=== PATIENT | female | born 1955 | race American Indian/Alaskan Native ===

== ENCOUNTER 2019-02-24 03:37 | Observation (INO) | payer MEDICAID, MEDICARE ==
[2019-02-24] MEDS ORDERED: ASPIRIN 325 MG TAB PO ONE (03:49)
--- NOTE | 2019-02-24 04:24 | XRay Report ---
CHEST 1 VIEW INDICATION / CLINICAL INFORMATION: Chest Pain. COMPARISON: None available. FINDINGS: SUPPORT DEVICES: None. HEART / MEDIASTINUM: No significant abnormality. LUNGS / PLEURA: No significant pulmonary or pleural abnormality. No pneumothorax. ADDITIONAL FINDINGS: No significant additional findings. IMPRESSION: 1. No acute findings. Signer Name: Herb Rios MD Signed: 02/24/2019 4:19 AM Workstation Name: [employer]
[2019-02-24 04:26] LABS: Basophils # (Auto) 0.1 K/mm3 (0.0-0.1); Eosinophils # (Auto) 0.1 K/mm3 (0.0-0.4); Hematocrit 39.9 % (30.3-42.9); Hemoglobin 13.2 gm/dl (10.1-14.3); Lymphocytes # (Auto) 1.5 K/mm3 (1.2-5.4); Lymphocytes % (Auto) 18.9 % (13.4-35.0); Mean Corpuscular HGB Conc 33 % (30-34); Mean Corpuscular Volume 85 fl (79-97); Monocytes # (Auto) 0.8 K/mm3 (0.0-0.8); Monocytes % (Auto) 10.1 % (0.0-7.3); Platelet Count 219 K/mm3 (140-440); Red Blood Count 4.71 M/mm3 (3.65-5.03); Red Cell Distribution Width 15.9 % (13.2-15.2)
[2019-02-24 04:47] LABS: BUN/Creatinine Ratio 11; Blood Urea Nitrogen 13 mg/dL (7-17); Calcium 9.9 mg/dL (8.4-10.2); Hemolysis Index 1
--- NOTE | 2019-02-24 07:52 | Emergency Department Report ---
ED Chest Pain HPI - General Chief Complaint: Chest Pain Stated Complaint: CHEST PAIN Time Seen by Provider: 02/24/19 07:40 Source: patient Mode of arrival: Ambulatory Limitations: No Limitations - History of Present Illness Initial Comments: Patient is 63 years old female with history of coronary artery disease status post 4 stents after a cardiac arrest 6 years ago, peripheral vascular disease, hypertension and diabetes. Patient also stated that she had history of rheumatic heart disease when she was young. Patient presented to the ER complaining of left sided chest pain started this morning. Patient described her pain as tightness with no radiation. Patient denied any shortness of breaths, cough, fever or chills. MD Complaint: chest pain -: This morning Onset: during rest Pain Location: left chest Pain Radiation: none Severity: moderate Severity scale (0 -10): 6 Quality: tightness Consistency: constant - Related Data Home Medications Medication Instructions Recorded Confirmed Last Taken Levothyroxine [Synthroid] 125 mcg PO DAILY 01/27/14 01/27/14 01/27/14 Pioglitazone (Nf) [Actos (Nf)] 30 mg PO DAILY 01/27/14 01/27/14 01/27/14 Simvastatin (Nf) [Zocor TAB] 40 mg PO HS 01/27/14 01/27/14 01/26/14 cloNIDine [Catapres] 0.2 mg PO BID 01/27/14 01/27/14 01/27/14 08:00 Previous Rx's Medication Instructions Recorded Last Taken Type ISOSORBIDE MONOnitrate [Imdur ER] 60 mg PO QDAY #30 tablet 01/29/14 Unknown Rx Allergies Allergy/AdvReac Type Severity Reaction Status Date / Time No Known Allergies Allergy Unverified 01/27/14 22:04 Heart Score - HEART Score History: Moderately suspicious EKG: Non-specific Age: 45-65 Risk factors: > 3 risk factors or hx of atherosclerotic disease Troponin: < normal limit HEART Score: 5 ED Review of Systems ROS: Stated complaint: CHEST PAIN Other details as noted in HPI Comment: All other systems reviewed and negative Constitutional: denies: chills, fever Respiratory: denies: cough, orthopnea, shortness of breath, SOB with exertion, SOB at rest, wheezing Cardiovascular: chest pain. denies: palpitations, dyspnea on exertion, orthopnea Gastrointestinal: denies: abdominal pain, nausea, vomiting, diarrhea, constipation, hematemesis, melena, hematochezia Musculoskeletal: denies: back pain Neurological: denies: headache, weakness, numbness, paresthesias, confusion, abnormal gait ED Past Medical Hx - Past Medical History Hx Hypertension: Yes Hx Heart Attack/AMI: Yes Hx Diabetes: Yes Additional medical history: HEART STENT X 4 - Surgical History Hx Coronary Stent: Yes Additional Surgical History: HYSTERECTOMY - Social History Smoking Status: Former Smoker - Medications Home Medications: Home Medications Medication Instructions Recorded Confirmed Last Taken Type Levothyroxine [Synthroid] 125 mcg PO DAILY 01/27/14 01/27/14 01/27/14 History Pioglitazone (Nf) [Actos (Nf)] 30 mg PO DAILY 01/27/14 01/27/14 01/27/14 History Simvastatin (Nf) [Zocor TAB] 40 mg PO HS 01/27/14 01/27/14 01/26/14 History cloNIDine [Catapres] 0.2 mg PO BID 01/27/14 01/27/14 01/27/14 08:00 History ISOSORBIDE MONOnitrate [Imdur ER] 60 mg PO QDAY #30 tablet 01/29/14 Unknown Rx ED Physical Exam - General Limitations: No Limitations General appearance: alert, in no apparent distress - Head Head exam: Present: atraumatic, normocephalic, normal inspection - Eye Eye exam: Present: normal appearance - ENT ENT exam: Present: normal exam, normal orophraynx, mucous membranes moist - Neck Neck exam: Present: normal inspection, full ROM. Absent: tenderness, meningismus, lymphadenopathy, thyromegaly - Respiratory Respiratory exam: Present: normal lung sounds bilaterally - Cardiovascular Cardiovascular Exam: Present: regular rate, normal rhythm, normal heart sounds - GI/Abdominal GI/Abdominal exam: Present: soft, normal bowel sounds. Absent: distended, tenderness, guarding, rebound, rigid, organomegaly, mass, bruit, pulsatile mass, hernia - Extremities Exam Extremities exam: Present: normal inspection, full ROM, normal capillary refill. Absent: pedal edema, calf tenderness - Back Exam Back exam: Present: normal inspection, full ROM. Absent: CVA tenderness (R), CVA tenderness (L), muscle spasm, paraspinal tenderness, vertebral tenderness - Neurological Exam Neurological exam: Present: alert, oriented X3, CN II-XII intact, normal gait, reflexes normal - Psychiatric Psychiatric exam: Present: normal mood - Skin Skin exam: Present: warm, intact, normal color ED Course Vital Signs 02/24/19 03:48 Temperature 97.7 F Pulse Rate 85 Respiratory 14 Rate Blood Pressure 151/100 O2 Sat by Pulse 98 Oximetry LUI score - Lui Score Age > 65: (0) No Aspirin use within the Past 7 Days: (0) No 3 or more CAD Risk Factors: (1) Yes 2 or more Angina events in past 24 hrs: (0) No Known CAD with more than 50% Stenosis: (1) Yes Elevated Cardiac Markers: (0) No ST Deviation Greater than 0.5mm: (0) No LUI Score: 2 ED Medical Decision Making - Lab Data Result diagrams: 02/24/19 04:09 02/24/19 04:09 - EKG Data -: EKG Interpreted by Me EKG shows normal: sinus rhythm Rate: normal - EKG Data Interpretation: no acute changes - Radiology Data Radiology results: report reviewed Chest X-rays unremarkable. - Medical Decision Making Patient is 63 years old female with history of coronary artery disease status post 4 stents after a cardiac arrest 6 years ago, peripheral vascular disease, hypertension and diabetes. Patient also stated that she had history of rheumatic heart disease when she was young. Patient presented to the ER complaining of left sided chest pain started this morning. Patient described her pain as tightness with no radiation. Patient denied any shortness of breaths, cough, fever or chills. EKG showed no acute change. Chest x-ray is unremarkable. Labs reviewed and is unremarkable including a negative troponin so far. I discussed the patient with , She agreed to admit the patient to medical service for further management. Critical Care Time: Yes Critical care time in (mins) excluding proc time.: 30 Critical care attestation.: If time is entered above; I have spent that time in minutes in the direct care o f this critically ill patient, excluding procedure time. ED Disposition Clinical Impression: Chest pain Disposition: OP ADMIT IP TO THIS HOSP Is pt being admited?: Yes Condition: Stable Instructions: Chest Pain (ED)
[2019-02-24] MEDS ORDERED: ACETAMINOPHEN 500 MG TAB PO ONE (07:53)
[2019-02-24] MEDS ORDERED: NITROGLYCERIN 0.4 MG TAB SUBL SL ONE (07:53)
[2019-02-24] MEDS ORDERED: ASPIRIN 325 MG TAB ONE (08:56)
[2019-02-24] MEDS ORDERED: oxyCODONE /ACETAMINOPHEN 5-325MG TAB PO PRN (10:27)
[2019-02-24] MEDS ORDERED: ZOLPIDEM 5 MG TAB PO PRN (10:27)
[2019-02-24] MEDS ORDERED: ACETAMINOPHEN 325 MG TAB PO PRN (10:27)
[2019-02-24] MEDS ORDERED: ALUM-MAG HYDROXIDE-SIMETHICONE 200-200-20MG/5ML ORAL LIQD 30 ML PO PRN (10:27)
[2019-02-24] MEDS ORDERED: MAGNESIUM HYDROXIDE (MOM) ORAL LIQD UDC PO PRN (10:27)
[2019-02-24] MEDS ORDERED: MORPHINE 4 MG/1 ML INJ IV PRN (10:27)
[2019-02-24] MEDS ORDERED: ONDANSETRON 4 MG/2 ML INJ IV PRN (10:27)
--- NOTE | 2019-02-24 12:49 | History and Physical Report ---
History of Present Illness Date of examination: 02/24/19 Date of admission: 02/24/19 08:58 Chief complaint: Left-sided chest pain History of present illness: Patient is a 63-year-old -[place]aur[place] female with history of CAD status post cardiac stents 5 who presented to the ED on account of 1 wk history of left- sided chest pain. She described it as an elephant sitting on her chest. Pain is constant in duration, non-radiating and rated 10 over 10. No known aggravating or relieving factors. She has associated left arm pain without numbness, shortness of breath, palpitation, diaphoresis, dry cough, headaches and dizziness. She denies nausea, vomiting, leg swelling, fever, chills, orthopnea PND. Her last stress test was about 2 years ago which was normal. Past History Past Medical History: CAD, diabetes, hypertension, hyperlipidemia, hypothyroidism Past Surgical History: cholecystectomy, Other (cardiac stents placements) Social history: , smoking (for 50 yrs. she denies alcohol or illicit drug use) Family history: CAD (mother), hypertension (mother) Medications and Allergies Allergies Allergy/AdvReac Type Severity Reaction Status Date / Time No Known Allergies Allergy Unverified 01/27/14 22:04 Home Medications Medication Instructions Recorded Confirmed Last Taken Type Levothyroxine [Synthroid] 125 mcg PO DAILY 01/27/14 01/27/14 01/27/14 History Pioglitazone (Nf) [Actos (Nf)] 30 mg PO DAILY 01/27/14 01/27/14 01/27/14 History Simvastatin (Nf) [Zocor TAB] 40 mg PO HS 01/27/14 01/27/14 01/26/14 History cloNIDine [Catapres] 0.2 mg PO BID 01/27/14 01/27/14 01/27/14 08:00 History ISOSORBIDE MONOnitrate [Imdur ER] 60 mg PO QDAY #30 tablet 01/29/14 Unknown Rx Active Meds: Active Medications Acetaminophen (Tylenol) 650 mg PO Q4H PRN PRN Reason: Pain MILD(1-3)/Fever >100.5/BETTS Al Hydrox/Mg Hydrox/Simethicone (Alum-Mag Hydrox-Simeth [phone]/5ml) 30 ml PO Q4H PRN PRN Reason: Indigestion Magnesium Hydroxide (Milk Of Magnesia) 30 ml PO Q4H PRN PRN Reason: Constipation Morphine Sulfate (Morphine) 2 mg IV Q4H PRN PRN Reason: Pain , Severe (7-10) Ondansetron HCl (Zofran) 4 mg IV Q8H PRN PRN Reason: Nausea And Vomiting Oxycodone/Acetaminophen (Percocet 5/325) 1 tab PO Q4H PRN PRN Reason: Pain, Moderate (4-6) Sodium Chloride (Sodium Chloride Flush Syringe 10 Ml) 10 ml IV BID GREYSON Sodium Chloride (Sodium Chloride Flush Syringe 10 Ml) 10 ml IV PRN PRN PRN Reason: LINE FLUSH Zolpidem Tartrate (Ambien) 5 mg PO QHS PRN PRN Reason: Insomnia Review of Systems All systems: negative (all other systems reviewed with the patient and are neg unless otherwise stated above) Exam - Constitutional Vitals: Temp Pulse Resp BP Pulse Ox 98.0 F 74 18 139/92 97 02/24/19 12:32 02/24/19 12:32 02/24/19 12:32 02/24/19 12:32 02/24/19 12:32 General appearance: Present: no acute distress, well-nourished - EENT Eyes: Present: PERRL, EOM intact ENT: hearing intact, clear oral mucosa - Neck Neck: Present: supple, normal ROM - Respiratory Respiratory effort: normal Respiratory: bilateral: CTA - Cardiovascular Rhythm: regular Heart Sounds: Present: S1 & S2. Absent: rub, click - Extremities Extremities: No edema Peripheral Pulses: within normal limits - Abdominal General gastrointestinal: Present: soft, non-tender, non-distended, normal bowel sounds Female genitourinary: Present: deferred - Integumentary Integumentary: Present: clear, warm, dry - Musculoskeletal Musculoskeletal: gait normal, strength equal bilaterally - Psychiatric Psychiatric: appropriate mood/affect, intact judgment & insight - Neurologic Neurologic: CNII-XII intact, moves all extremities Results - Labs CBC & Chem 7: 02/24/19 04:09 02/24/19 04:09 Labs: Laboratory Last Values WBC 8.1 K/mm3 (4.5-11.0) 02/24/19 04:09 RBC 4.71 M/mm3 (3.65-5.03) 02/24/19 04:09 Hgb 13.2 gm/dl (10.1-14.3) 02/24/19 04:09 Hct 39.9 % (30.3-42.9) 02/24/19 04:09 MCV 85 fl (79-97) 02/24/19 04:09 MCH 28 pg (28-32) 02/24/19 04:09 MCHC 33 % (30-34) 02/24/19 04:09 RDW 15.9 % (13.2-15.2) H 02/24/19 04:09 Plt Count 219 K/mm3 (140-440) 02/24/19 04:09 Lymph % (Auto) 18.9 % (13.4-35.0) 02/24/19 04:09 Loving % (Auto) 10.1 % (0.0-7.3) H 02/24/19 04:09 Eos % (Auto) 1.0 % (0.0-4.3) 02/24/19 04:09 Baso % (Auto) 1.0 % (0.0-1.8) 02/24/19 04:09 Lymph # 1.5 K/mm3 (1.2-5.4) 02/24/19 04:09 Loving # 0.8 K/mm3 (0.0-0.8) 02/24/19 04:09 Eos # 0.1 K/mm3 (0.0-0.4) 02/24/19 04:09 Baso # 0.1 K/mm3 (0.0-0.1) 02/24/19 04:09 Seg Neutrophils % 69.0 % (40.0-70.0) 02/24/19 04:09 Seg Neutrophils # 5.6 K/mm3 (1.8-7.7) 02/24/19 04:09 Sodium 145 mmol/L (137-145) 02/24/19 04:09 Potassium 3.7 mmol/L (3.6-5.0) 02/24/19 04:09 Chloride 105.2 mmol/L (98-107) 02/24/19 04:09 Carbon Dioxide 27 mmol/L (22-30) 02/24/19 04:09 Anion Gap 17 mmol/L 02/24/19 04:09 BUN 13 mg/dL (7-17) 02/24/19 04:09 Creatinine 1.2 mg/dL (0.7-1.2) 02/24/19 04:09 Estimated GFR 55 ml/min 02/24/19 04:09 BUN/Creatinine Ratio 11 % 02/24/19 04:09 Glucose 116 mg/dL (65-100) H 02/24/19 04:09 Calcium 9.9 mg/dL (8.4-10.2) 02/24/19 04:09 Troponin T < 0.010 ng/mL (0.00-0.029) 02/24/19 10:43 Assessment and Plan Assessment and plan: Acute LT-sided chest pain, rule out ACS -Chest pain pathway -Cardiology consulted Essential HTN -Stable -On metoprolol and Imdur DM2 -Stable -On SSI HLD -On statin Hypothyroidism -Resume Synthroid DVT prophylaxis: SCD Disposition: Patient admitted to observation status. Discharge planning will depend on clinical course Time spent: 38 minutes
--- NOTE | 2019-02-24 13:58 | Consultation ---
History of Present Illness Consult date: 02/24/19 Requesting physician: DESIREE LITTLE Consult reason: chest pain History of present illness: The patient is 63 years old female with history of CAD s/p 5 stents, most recent stent was to mid LAD in 2010 per stent card, cardiac arrest x 2, rheumatic fever as a child, PVD, HTN, DM, CVA in 2001. She is previously unknown to our practice. She presented with c/o chest pain for the past 1 week. She describes her pain as an intermittent, nonexertional, stabbing right sided pain which has no clear aggravating or alleviating factors. The pain is sometimes associated with SOB and n/v. She denies any palpitations, diaphoresis, dizziness or syncope. She recently relocated back to [place] from [place] and does not regul laith see a homemaking rehabilitation consultant. Echo done 01/2014 showed EF 60-65%, trace MR, trace TR, mod LVH, impaired relaxation. PET MPI done at [facility] on 11/25/2018 was negative, EF 56%. Past History Past Medical History: other (as per HPI) Medications and Allergies Allergies Allergy/AdvReac Type Severity Reaction Status Date / Time No Known Allergies Allergy Unverified 01/27/14 22:04 Home Medications Medication Instructions Recorded Confirmed Last Taken Type Levothyroxine [Synthroid] 125 mcg PO DAILY 01/27/14 01/27/14 01/27/14 History Pioglitazone (Nf) [Actos (Nf)] 30 mg PO DAILY 01/27/14 01/27/14 01/27/14 History Simvastatin (Nf) [Zocor TAB] 40 mg PO HS 01/27/14 01/27/14 01/26/14 History cloNIDine [Catapres] 0.2 mg PO BID 01/27/14 01/27/14 01/27/14 08:00 History ISOSORBIDE MONOnitrate [Imdur ER] 60 mg PO QDAY #30 tablet 01/29/14 Unknown Rx Active Meds: Active Medications Acetaminophen (Tylenol) 650 mg PO Q4H PRN PRN Reason: Pain MILD(1-3)/Fever >100.5/BETTS Al Hydrox/Mg Hydrox/Simethicone (Alum-Mag Hydrox-Simeth [phone]/5ml) 30 ml PO Q4H PRN PRN Reason: Indigestion Magnesium Hydroxide (Milk Of Magnesia) 30 ml PO Q4H PRN PRN Reason: Constipation Morphine Sulfate (Morphine) 2 mg IV Q4H PRN PRN Reason: Pain , Severe (7-10) Ondansetron HCl (Zofran) 4 mg IV Q8H PRN PRN Reason: Nausea And Vomiting Oxycodone/Acetaminophen (Percocet 5/325) 1 tab PO Q4H PRN PRN Reason: Pain, Moderate (4-6) Sodium Chloride (Sodium Chloride Flush Syringe 10 Ml) 10 ml IV BID GREYSON Sodium Chloride (Sodium Chloride Flush Syringe 10 Ml) 10 ml IV PRN PRN PRN Reason: LINE FLUSH Zolpidem Tartrate (Ambien) 5 mg PO QHS PRN PRN Reason: Insomnia Review of Systems Constitutional: no weight loss, no weight gain, no fever, no chills, no sweats Ears, nose, mouth and throat: no ear pain, no nose pain, no sinus pressure, no sinus pain Cardiovascular: chest pain, shortness of breath, high blood pressure, no orthopnea, no palpitations, no rapid/irregular heart beat, no edema, no syncope, no lightheadedness, no leg edema Respiratory: shortness of breath, no cough, no congestion, no wheezing, no pain on inspiration Gastrointestinal: nausea, vomiting, no abdominal pain, no diarrhea, no constipation, no change in bowel habits Genitourinary Female: no pelvic pain, no flank pain, no dysuria, no urinary frequency, no urgency Musculoskeletal: no neck stiffness, no neck pain, no shooting arm pain, no arm numbness/tingling, no low back pain, no shooting leg pain Integumentary: no rash, no pruritis, no redness, no sores, no wounds Neurological: no head injury, no paralysis, no weakness, no parathesias, no numbness, no tingling, no seizures, no syncope Psychiatric: no anxiety Endocrine: no cold intolerance, no heat intolerance Hematologic/Lymphatic: no easy bruising, no easy bleeding Allergic/Immunologic: no urticaria, no wheezing Physical Examination Vital Signs Temp Pulse Resp BP Pulse Ox 97.7 F 85 14 151/100 98 02/24/19 03:48 02/24/19 03:48 02/24/19 03:48 02/24/19 03:48 02/24/19 03:48 General appearance: no acute distress HEENT: Positive: PERRL, Normocephaly, Mucus Membranes Moist Neck: Positive: neck supple, trachea midline Cardiac: Positive: Reg Rate and Rhythm, S1/S2 Lungs: Positive: Decreased Breath Sounds Neuro: Positive: Grossly Intact Abdomen: Negative: Tender Skin: Negative: Rash Musculoskeletal: No Pain Extremities: Absent: edema Results 02/24/19 04:09 02/24/19 04:09 CBC 02/24/19 Range/Units 04:09 WBC 8.1 (4.5-11.0) K/mm3 RBC 4.71 (3.65-5.03) M/mm3 Hgb 13.2 (10.1-14.3) gm/dl Hct 39.9 (30.3-42.9) % Plt Count 219 (140-440) K/mm3 Lymph # 1.5 (1.2-5.4) K/mm3 Winn # 0.8 (0.0-0.8) K/mm3 Eos # 0.1 (0.0-0.4) K/mm3 Baso # 0.1 (0.0-0.1) K/mm3 Comprehensive Metabolic Panel 02/24/19 Range/Units 04:09 Sodium 145 (137-145) mmol/L Potassium 3.7 (3.6-5.0) mmol/L Chloride 105.2 (98-107) mmol/L Carbon Dioxide 27 (22-30) mmol/L BUN 13 (7-17) mg/dL Creatinine 1.2 (0.7-1.2) mg/dL Glucose 116 H (65-100) mg/dL Calcium 9.9 (8.4-10.2) mg/dL - Imaging and Cardiology Echo: report reviewed (01/2014 showed EF 60-65%, trace MR, trace TR, mod LVH, impaired relaxation. ) EKG: report reviewed, image reviewed EKG interpretations - Telemetry EKG Rhythm: Sinus Rhythm - EKG Sinus rhythms and dysrhythmias: sinus rhythm Assessment and Plan Pt's chest pain appears atypical. AMI ruled out. PET MPI done at [facility] on 11/25/2018 was negative, EF 56%. Will obtain echo and optimize anti-ischemic regimen. Of note, pt reports clonidine is the only anti-hypertensive that "works" for her. However, she is agreeable to initiate lopressor and will attempt to wean off home clonidine. Resume home Imdur. If pain persists despite medical optimization, can consider coronary angiography. Will make NPO after MN for tentative LHC in AM. The patient has been seen in conjunction with Dr. Mary Johnston who agrees with the assessment and plan of care. - Patient Problems (1) Atypical chest pain Current Visit: Yes Status: Acute (2) CAD (coronary artery disease) Current Visit: Yes Status: Chronic (3) Stented coronary artery Current Visit: Yes Status: Chronic (4) History of cardiac arrest Current Visit: Yes Status: Chronic (5) HTN (hypertension) Current Visit: Yes Status: Chronic (6) Diabetes Current Visit: Yes Status: Chronic (7) PVD (peripheral vascular disease) Current Visit: Yes Status: Chronic (8) History of CVA (cerebrovascular accident) Current Visit: Yes Status: Chronic
[2019-02-24] MEDS ORDERED: DEXTROSE 50% IN WATER (25GM) 50 ML SYRINGE IV PRN (15:34)
[2019-02-24] MEDS ORDERED: NITROGLYCERIN 0.4 MG TAB SUBL SL PRN (15:34)
[2019-02-24] MEDS: INSULIN LISPRO 100 UNIT/ML SUB-Q SCH ×2 (18:37→22:55)
[2019-02-24] MEDS: cloNIDine 0.1 MG TAB PO SCH (21:12)
[2019-02-24] MEDS: METOPROLOL TARTRATE 25 MG TAB PO SCH (21:14)
[2019-02-24] MEDS ORDERED: cloNIDine 0.2 MG TAB PO SCH ×2 (22:00)
[2019-02-25] MEDS: INSULIN LISPRO 100 UNIT/ML SUB-Q SCH ×4 (07:30→22:53)
[2019-02-25] MEDS ORDERED: ASPIRIN 325 MG TAB PO SCH (10:00)
[2019-02-25] MEDS: SODIUM CHLORIDE 0.9% 500 ML 500 ML IV SCH ×2 (10:49→11:37)
[2019-02-25] MEDS ORDERED: HEPARIN/NS 5000 UNIT/500ML 1,000 ML IR ONE (11:09)
[2019-02-25] MEDS ORDERED: VERAPAMIL 5 MG/2 ML INJ ONE (11:09)
[2019-02-25 11:35] LABS: INR 1.06 (0.87-1.13)
[2019-02-25] MEDS: fentaNYL 100 MCG/2 ML INJ ONE ×2 (11:36→11:42)
[2019-02-25] MEDS: MIDAZOLAM 2 MG/2 ML INJ ONE ×2 (11:36→11:42)
[2019-02-25] MEDS: LIDOCAINE (2%) 20 MG/1 ML VIAL 20 ML MDV INFILTRATI ONE ×2 (11:37→11:46)
[2019-02-25] MEDS: HEPARIN 10,000 UNITS/10 ML VIAL ONE ×3 (11:37→11:47)
[2019-02-25] MEDS: NITROGLYCERIN SYRINGE 3 ML ONE ×2 (11:38→11:47)
--- NOTE | 2019-02-25 13:10 | Cardiac Catherization Report ---
CARDIAC CATHETERIZATION. INDICATION FOR PROCEDURE: The patient is an exceedingly pleasant 63-year-old -Chinese female with multiple risk factors, known coronary artery disease, multiple PCIs, recurrent chest pain, active tobacco abuse, presents for evaluation, referred for left heart catheterization. Recent stress test is noted. Risks, benefits, alternatives discussed at length prior to obtaining informed consent. PROCEDURE IN DETAIL: The patient was brought to catheterization lab in a postabsorptive state, prepped and draped in sterile fashion. Yehuda's test in right hand was normal. A 2 mL of lidocaine used to anesthetize the right wrist. A standard 6-Zambian sheath used to cannulate the right radial artery via modified Seldinger technique. All exchanges performed to exchange a J-tip guidewire. JL3.5 catheter used to engage the left main. No dampening or ventricularization. Cineangiography performed in all projections. JR4 catheters used to cross the aortic valve under fluoroscopic guidance. Left ventriculography performed in 30 OWENS and 30 KOSOVAN projections via hand injections, catheter flushed. Manual pullback performed with continuous pressure monitoring. Catheter used to engage the right coronary. No dampening or ventricularization. Cineangiography performed in all projections. JR4 catheter was used cross the aortic valve under fluoroscopic guidance. Left ventriculography performed in 30 OWENS and 30 KOSOVAN projections via hand injection. Catheter flushed. Manual pullback was performed with continuous pressure monitoring. Catheter was used to engage the right coronary. No dampening or ventricularization. Cineangiography performed in all projections. Due to recurrent chest pain and nonobstructive disease in the coronaries, a pigtail catheter was placed in the aorta and root aortography was performed in the KOSOVAN projection with power injector. Next, catheter removed from the body of wire, sheath removed. Manual pressure was used to achieve hemostasis. I directly supervised the administration of moderate sedation with fentanyl and Versed from 11:40 a.m. to 12:15 a.m. No immediate complications identified. DATA: Aortic pressure is 130/80, LV pressure is 130, LVEDP of 12 mmHg. Left ventriculography reveals normal systolic performance with estimated ejection fraction of 55-60%. No evidence of aortic stenosis. CORONARY ANATOMY: Left main without significant disease, bifurcates left anterior descending and left circumflex. Left circumflex, moderate sized vessel, courses AV groove, stent noted in the mid segment is widely patent. Moderate nonobstructive disease, 25% proximal stenosis, but no obstructive disease identified. LUI 3 flow noted. LAD is a moderate sized vessel, courses anterior intraventricular groove, wraps around the apex. It should be noted that the entire coronary tree is quite tortuous. A patent proximal LAD stent. A 25% mid LAD stenosis. No obstructive disease noted in the LAD or diagonal system. Right coronary is a moderate sized vessel, very tortuous and calcified courses AV groove, distally bifurcates in the posterior and posterolateral branch. Aneurysmal segment distally, there is a 40-50% stenosis in the mid right coronary, smooth, nonulcerated. LUI 3 flow throughout. No obstructive disease identified. Root aortogram shows normal contour, normal great vessel anatomy and calcified root. No evidence of dissection, penetrating aortic ulcer, or aortic insufficiency. I did spend greater than 5 minutes discussing smoking cessation. The patient is at risk for significant cardiac event given aforementioned [id number] disease, which was recurrent active tobacco abuse. She expresses understanding. CONCLUSIONS: 1. [id number] nonobstructive coronary artery disease in this right dominant system. A 40-50% mid right coronary, 25% mid LAD, 25% proximal right coronary, heavily calcified and tortuous system. LUI 3 flow throughout. Medical management, optimize medical therapy. Quit smoking. 2. Preserved left ventricular systolic performance, estimated ejection fraction of 55-60%. No evidence of aortic stenosis. 3. Normal LVEDP. Normal root aortography without evidence of dissection, penetrating aortic ulcer, or aortic insufficiency. Calcified aortic root is noted. At this point, the patient is clinically stable, chest pain free. Aggressive risk factor modification. We will intensify medical therapy, standard radial care. Results of procedure explained to the patient and family. All questions and concerns were addressed. JOB# [id number] SBM/NTS
[2019-02-25] MEDS: METOPROLOL TARTRATE 25 MG TAB PO SCH ×2 (13:52→22:53)
[2019-02-25] MEDS: cloNIDine 0.1 MG TAB PO SCH ×2 (13:53→22:52)
--- NOTE | 2019-02-25 15:05 | Progress Note ---
<ANUSHA BENITEZ - Last Filed: 02/25/19 15:02> Assessment and Plan S/p LHC today which showed patent stents, nonobstructive CAD. Echo reviewed - EF 55-60%, mild LVH, impaired relaxation. Currently stable cardiac status. Pt may discharge home from cardiology standpoint on current cardiac regimen following completion of post-cath order set. Recommend pt follow up in our office with Dr. Mary Johnston within 1-2 weeks ([phone]). The patient has been seen in conjunction with Dr. Mary Johnston who agrees with the assessment and plan of care. - Patient Problems (1) Atypical chest pain Current Visit: Yes Status: Acute (2) CAD (coronary artery disease) Current Visit: Yes Status: Chronic (3) Stented coronary artery Current Visit: Yes Status: Chronic (4) History of cardiac arrest Current Visit: Yes Status: Chronic (5) HTN (hypertension) Current Visit: Yes Status: Chronic (6) Diabetes Current Visit: Yes Status: Chronic (7) PVD (peripheral vascular disease) Current Visit: Yes Status: Chronic (8) History of CVA (cerebrovascular accident) Current Visit: Yes Status: Chronic Subjective Date of service: 02/25/19 Principal diagnosis: cp Interval history: Pt continues to c/o chest pain and thus for LHC today. in SR on tele. Objective Last Vital Signs Temp 98.6 F 02/25/19 12:48 Pulse 68 02/25/19 13:53 Resp 18 02/25/19 12:48 BP 125/73 02/25/19 13:53 Pulse Ox 99 02/25/19 12:48 - Physical Examination General: No Apparent Distress HEENT: Positive: PERRL, Normocephaly, Mucus Membranes Moist Neck: Positive: neck supple, trachea midline Cardiac: Positive: Reg Rate and Rhythm, S1/S2 Lungs: Positive: Decreased Breath Sounds Neuro: Positive: Grossly Intact Abdomen: Negative: Tender Skin: Negative: Rash Musculoskeletal: No Pain Extremities: Absent: edema - Labs and Meds Coagulation 02/25/19 Range/Units 11:15 PT 13.7 (12.2-14.9) Sec. INR 1.06 (0.87-1.13) - Imaging and Cardiology EKG: report reviewed, image reviewed Echo: report reviewed (01/2014 showed EF 60-65%, trace MR, trace TR, mod LVH, impaired relaxation. ) - Telemetry EKG Rhythm: Sinus Rhythm - EKG Sinus rhythms and dysrhythmias: sinus rhythm <EDITH JOHNSTON - Last Filed: 02/25/19 16:05> Assessment and Plan discussed smoking cessation for ~ 5 min Objective Vital Signs Temp Pulse Pulse Resp Resp BP Pulse Ox 02/25/19 13:53 68 125/73 02/25/19 13:52 68 125/73 02/25/19 13:00 79 02/25/19 12:48 98.6 F 68 18 125/73 99 02/25/19 11:00 79 20 98 02/25/19 05:54 61 02/25/19 04:06 98.5 F 20 120/76 02/25/19 03:00 72 02/25/19 00:56 98.2 F 20 104/55 02/24/19 23:18 17 17 02/24/19 21:14 80 140/92 02/24/19 21:12 80 140/92 02/24/19 19:38 99.2 F 20 119/82 02/24/19 19:18 72 02/24/19 16:41 98.1 F 82 18 142/91 98 - Labs and Meds Coagulation 02/25/19 Range/Units 11:15 PT 13.7 (12.2-14.9) Sec. INR 1.06 (0.87-1.13)
--- NOTE | 2019-02-25 15:25 | Progress Note ---
Assessment and Plan Assessment and plan: Acute LT-sided chest pain, ACS ruled out -Serial troponin levels negative -Cardiology consulted: LHC done which showed mild-moderate non-obstructive CAD (25-50%). No PCI performed -Continue medical management Essential HTN -controlled on meds DM2 -Stable -On SSI HLD -On statin CAD -s/p stents placement x5 Hypothyroidism -cont Synthroid DVT prophylaxis: SCD Disposition: Patient requested to be monitored for 24 hours in order to ensure that she doesn't develop any complications from the procedure, specifically bleeding. will plan for d/c in am if clinically stable History Interval history: Patient has no new complaints. She denied chest pain or shortness of breath. Hospitalist Physical - Constitutional Vitals: Temp Pulse Resp BP Pulse Ox 98.6 F 68 18 125/73 99 02/25/19 12:48 02/25/19 13:53 02/25/19 12:48 02/25/19 13:53 02/25/19 12:48 General appearance: Present: no acute distress, well-nourished - EENT Eyes: Present: PERRL, EOM intact ENT: hearing intact, clear oral mucosa - Neck Neck: Present: supple - Respiratory Respiratory effort: normal Respiratory: bilateral: CTA - Cardiovascular Rhythm: regular Heart Sounds: Present: S1 & S2 - Extremities Extremities: No edema - Abdominal General gastrointestinal: soft, non-tender, normal bowel sounds - Integumentary Integumentary: Present: warm, dry - Psychiatric Psychiatric: appropriate mood/affect - Neurologic Neurologic: CNII-XII intact Results - Labs CBC & Chem 7: 02/24/19 04:09 02/24/19 04:09 Labs: Laboratory Last Values WBC 8.1 K/mm3 (4.5-11.0) 02/24/19 04:09 RBC 4.71 M/mm3 (3.65-5.03) 02/24/19 04:09 Hgb 13.2 gm/dl (10.1-14.3) 02/24/19 04:09 Hct 39.9 % (30.3-42.9) 02/24/19 04:09 MCV 85 fl (79-97) 02/24/19 04:09 MCH 28 pg (28-32) 02/24/19 04:09 MCHC 33 % (30-34) 02/24/19 04:09 RDW 15.9 % (13.2-15.2) H 02/24/19 04:09 Plt Count 219 K/mm3 (140-440) 02/24/19 04:09 Lymph % (Auto) 18.9 % (13.4-35.0) 02/24/19 04:09 Turner % (Auto) 10.1 % (0.0-7.3) H 02/24/19 04:09 Eos % (Auto) 1.0 % (0.0-4.3) 02/24/19 04:09 Baso % (Auto) 1.0 % (0.0-1.8) 02/24/19 04:09 Lymph # 1.5 K/mm3 (1.2-5.4) 02/24/19 04:09 Turner # 0.8 K/mm3 (0.0-0.8) 02/24/19 04:09 Eos # 0.1 K/mm3 (0.0-0.4) 02/24/19 04:09 Baso # 0.1 K/mm3 (0.0-0.1) 02/24/19 04:09 Seg Neutrophils % 69.0 % (40.0-70.0) 02/24/19 04:09 Seg Neutrophils # 5.6 K/mm3 (1.8-7.7) 02/24/19 04:09 PT 13.7 Sec. (12.2-14.9) 02/25/19 11:15 INR 1.06 (0.87-1.13) 02/25/19 11:15 Sodium 145 mmol/L (137-145) 02/24/19 04:09 Potassium 3.7 mmol/L (3.6-5.0) 02/24/19 04:09 Chloride 105.2 mmol/L (98-107) 02/24/19 04:09 Carbon Dioxide 27 mmol/L (22-30) 02/24/19 04:09 Anion Gap 17 mmol/L 02/24/19 04:09 BUN 13 mg/dL (7-17) 02/24/19 04:09 Creatinine 1.2 mg/dL (0.7-1.2) 02/24/19 04:09 Estimated GFR 55 ml/min 02/24/19 04:09 BUN/Creatinine Ratio 11 % 02/24/19 04:09 Glucose 116 mg/dL (65-100) H 02/24/19 04:09 POC Glucose 85 (70-105) 02/25/19 11:31 Calcium 9.9 mg/dL (8.4-10.2) 02/24/19 04:09 Troponin T < 0.010 ng/mL (0.00-0.029) 02/24/19 10:43 Active Medications - Current Medications Current Medications: Generic Name Dose Route Start Last Admin Trade Name Freq PRN Reason Stop Dose Admin Acetaminophen 650 mg 02/24/19 10:27 Tylenol PO Q4H PRN Pain MILD(1-3)/Fever >100.5/BETTS Al Hydrox/Mg Hydrox/Simethicone 30 ml 02/24/19 10:27 Alum-Mag Hydrox-Simeth 310-120-16if/5ml PO Q4H PRN Indigestion Aspirin 81 mg 02/26/19 10:00 Baby Aspirin PO QDAY GREYSON Atorvastatin Calcium 40 mg 02/24/19 22:00 02/24/19 21:14 Lipitor PO 40 mg QHS GREYSON Administration Clonidine HCl 0.1 mg 02/24/19 22:00 02/25/19 13:53 Catapres PO 0.1 mg BID GREYSON Administration Dextrose 50 ml 02/24/19 15:34 D50w (25gm) Syringe IV Q30MIN PRN Hypoglycemia Protocol Sodium Chloride 500 mls @ 50 mls/hr 02/25/19 11:00 02/25/19 11:37 Nacl 0.9% 500 Ml IV 02/25/19 20:59 50 mls/hr DIRECT GREYSON Administration Insulin Human Lispro 0 unit 02/24/19 16:30 02/25/19 12:43 Humalog SUB-Q Not Given ACHS GREYSON Protocol Isosorbide Mononitrate 60 mg 02/25/19 10:00 02/25/19 13:53 Imdur PO 60 mg QDAY GREYSON Administration Magnesium Hydroxide 30 ml 02/24/19 10:27 Milk Of Magnesia PO Q4H PRN Constipation Metoprolol Tartrate 25 mg 02/24/19 22:00 02/25/19 13:52 Metoprolol PO 25 mg BID GREYSON Administration Morphine Sulfate 2 mg 02/24/19 10:27 Morphine IV Q4H PRN Pain , Severe (7-10) Nitroglycerin 0.4 mg 02/24/19 15:34 Nitrostat SL .Q5MIN PRN Chest Pain Ondansetron HCl 4 mg 02/24/19 10:27 Zofran IV Q8H PRN Nausea And Vomiting Oxycodone/Acetaminophen 1 tab 02/24/19 10:27 Percocet 5/325 PO Q4H PRN Pain, Moderate (4-6) Sodium Chloride 10 ml 02/24/19 22:00 02/25/19 13:54 Sodium Chloride Flush Syringe 10 Ml IV 10 ml BID GREYSON Administration Sodium Chloride 10 ml 02/24/19 10:27 Sodium Chloride Flush Syringe 10 Ml IV PRN PRN LINE FLUSH Zolpidem Tartrate 5 mg 02/24/19 10:27 Ambien PO QHS PRN Insomnia
[2019-02-26] MEDS ORDERED: LEVOTHYROXINE 125 MCG TAB PO SCH (10:00)
[2019-02-26] MEDS ORDERED: ASPIRIN 81 MG TAB CHEW PO SCH (10:00)
[2019-02-26] MEDS: INSULIN LISPRO 100 UNIT/ML SUB-Q SCH (10:41)
[2019-02-26 10:43] VITALS: BP 123/85
[2019-02-26] MEDS: cloNIDine 0.1 MG TAB PO SCH (10:43)
[2019-02-26] MEDS: METOPROLOL TARTRATE 25 MG TAB PO SCH (10:43)
--- NOTE | 2019-02-26 11:58 | Discharge Summary ---
Providers - Providers Date of Admission: 02/24/19 08:58 Date of discharge: 02/26/19 Attending physician: DESIREE LITTLE 02/24/19 10:26 Consult to Physician [CONS] Routine Comment: Consulting Provider: PRATEEK TURNER Physician Instructions: Reason For Exam: chest pain Primary care physician: [facility] MD [place] Hospitalization Reason for admission: Acute LT-sided chest pain, r/o ACS Condition: Stable Procedures: [facility] Hospital course: Final discharge diagnosis: Acute LT-sided chest pain, ACS ruled out. Exact cause unknown. Essential HTN DM2 HLD CAD s/p stents placement x5 Hypothyroidism Hospital course: Pt was admitted and placed on chest pain pathway. Serial troponin levels done were neg. However, due to her persistent chest pain and extensive cardiac hx, further evaluation was done with [facility]. It showed mild-moderate non-obstructive CAD (25-50%) and medical management was recommended. Post-procedure, she was monitored without any adverse events and was then deemed stable for d/c with clinic f/u. Disposition: DC-01 TO HOME OR SELFCARE Time spent for discharge: 30 mins Core Measure Documentation - Palliative Care Palliative Care/ Comfort Measures: Not Applicable - Core Measures Any of the following diagnoses?: none Exam - Constitutional Vitals: Temp Pulse Resp BP Pulse Ox 98.0 F 60 18 123/85 98 02/26/19 09:20 02/26/19 10:43 02/26/19 09:20 02/26/19 10:43 02/26/19 05:21 General appearance: Present: no acute distress, well-nourished - EENT Eyes: Present: PERRL, EOM intact ENT: hearing intact, clear oral mucosa - Neck Neck: Present: supple, normal ROM - Respiratory Respiratory effort: normal Respiratory: bilateral: CTA - Cardiovascular Rhythm: regular Heart Sounds: Present: S1 & S2. Absent: rub, click - Extremities Extremities: No edema - Abdominal General gastrointestinal: Present: soft, non-tender, non-distended, normal bowel sounds - Integumentary Integumentary: Present: clear, warm, dry - Musculoskeletal Musculoskeletal: gait normal, strength equal bilaterally - Psychiatric Psychiatric: appropriate mood/affect, intact judgment & insight - Neurologic Neurologic: CNII-XII intact, moves all extremities Plan Follow up with: ALISSON MILAN MD [Primary Care Provider] - 7 Days Prescriptions: Simvastatin 40 mg PO QHS #30 tablet Pioglitazone HCl [Actos] 30 mg PO DAILY #30 tablet Aspirin EC 325 mg PO QDAY #30 tablet. cloNIDine [Catapres] 0.2 mg PO BID #60 tab ISOSORBIDE MONOnitrate [Imdur ER] 60 mg PO QDAY #30 tablet Nitroglycerin [Nitrostat] 0.4 mg SL .Q5MIN PRN #1 bottle PRN Reason: Chest Pain Levothyroxine [Synthroid] 125 mcg PO DAILY #30 tab
== END 2019-02-26 15:30 | disposition home or self-care (01) ==
LOC: ED 03:37 → 4A 08:58 → INTOOBSV 08:58 → 4A 11:09
PROVIDERS: ADMIT Internal Medicine; ATTEND Internal Medicine
DX: R07.89 Other chest pain (principal); I25.10 Atherosclerotic heart disease of native coronary artery without angina pectoris; E11.9 Type 2 diabetes mellitus without complications; I10 Essential (primary) hypertension; E78.5 Hyperlipidemia, unspecified; E03.9 Hypothyroidism, unspecified; Z87.891 Personal history of nicotine dependence; Z90.49 Acquired absence of other specified parts of digestive tract; Z95.5 Presence of coronary angioplasty implant and graft; Z79.899 Other long term (current) drug therapy
CPT/HCPCS: 36415; 71045; 80048; 82962; 84484; 85025; 85610; 93005; 93010; 93306; 93458; 93567; 96372; 99291; A9270; C1894; G0378; J1644; J2250; J3010; J1815; Q9967